=== PATIENT | male | born 1955 | race Two or more races ===

== ENCOUNTER 2017-01-12 13:00 | Emergency (ER) | payer OTHER ==
[~2017-01-12] VITALS: Ht 177.8 cm; Wt 81.6 kg
[2017-01-12 13:07] VITALS: BP 151/93
[2017-01-12] MEDS ORDERED: IBUPROFEN 600 MG TAB PO ONE (13:30)
[2017-01-12] MEDS ORDERED: NEOMYCIN-BACITRACIN-POLYM UNITDOSE PKG TOP OINT TOP ONE (13:30)
== END 2017-01-12 13:25 | disposition home or self-care (01) ==
LOC: ER 13:00
DX: S20.219A Contusion of unspecified front wall of thorax, initial encounter (principal); S50.811A Abrasion of right forearm, initial encounter; V49.49XA Driver injured in collision with other motor vehicles in traffic accident, initial encounter; Y93.89 Activity, other specified; Y99.8 Other external cause status; Y92.410 Unspecified street and highway as the place of occurrence of the external cause